=== PATIENT | female | born 1970 | race Caucasian/White ===

== ENCOUNTER 2023-01-21 13:03 | Outpatient (AMB) | payer OTHER, SELFPAY ==
--- NOTE | 2023-01-21 13:32 | HO.NEPHOV ---
HPI HPI Comments History of Present Illness Details juliocesar is a 52-year-old woman with a history of obesity and she underwent gastric bypass surgery in. She lost about 4 lb. Prior to surgery she was on lisinopril for hypertension. Following surgery and weight loss she developed hypotension. For the last couple years she has had significant hypotension requiring midodrine. 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 [facility] Family History (Updated 01/21/23 @ 13:38 by Sima Elliott) Mother No problems noted. Father No problems noted. Vital Signs 01/21/23 13:34 Height 5 ft 6 in Weight 159 lb 4 oz BMI 25.7 BP 106/64 Blood Pressure Location Lt brachial Position Sitting Pulse 80 Pulse Source Pulse Oximeter Pulse Oximetry (%) 98 Oxygen Delivery Method Room Air Physical Exam Vital Signs: Last Vital Signs Pulse 80 01/21/23 13:34 BP 106/64 01/21/23 13:34 Pulse Ox 98 01/21/23 13:34 Oxygen Delivery Method Room Air 01/21/23 13:34 BMI result Body Mass Index 25.7 Const General: comfortable; No acute distress Orientation/consciousness: patient oriented x3 Eyes General: appearance normal, both eyes and all related structures Visual Mckeon: normal visual mckeon by confrontation Neck Neck: Yes supple and Yes no JVD Resp Effort & Inspection: normal respiratory effort and respiratory effort not decreased Auscultation: rhonchi Cardio Palpation: no palpable S3 and no palpable S4 Heart sounds: no rubs GI Inspection: Yes normal to inspection Palpation (GI): Soft to palpation Percussion: Yes normal to percussion Auscultation: normal bowel sounds General: Yes no CVA tenderness Back/Spine/Pelvis Back: no CVA tenderness Skin General skin exam: no petechiae and no purpura Neuro General: patient oriented x3 and no focal motor deficits Extrem General: No clubbing and No edema Results Reviewed Results Reviewed: Labs from [facility] [place] was reviewed serum creatinine normal. Hemoglobin normal as of October 2022 Assessment & Plan Assessment & Plan (1) Hypotension: Code(s): I95.9 - Hypotension, unspecified Plan: Middle-aged woman with a history of obesity and status post gastric bypass surgery was developed hypotension following surgery. She is alert number dysfunction following surgery. Currently she is on midodrine and I will continue the current dose of midodrine. If she develops episodes of low blood pressure when treated to increase the salt intake. Are present renal function stable. We will continue to follow her along with the team. Thank you Orders: Orders Electrolytes 6 Months I10 - Essential (primary) hypertension Blood Urea Nitrogen 6 Months I10 - Essential (primary) hypertension Creatinine 6 Months I10 - Essential (primary) hypertension Calcium 6 Months I10 - Essential (primary) hypertension Coding Level of Care Code Est Pt Level 3 (49477) Diagnoses Hypotension I95.9
[2023-01-21 13:34] VITALS: BP 106/64; PULSE 80; O2SAT 98; BMI 25.7
== END 2023-01-21 13:54 | disposition home or self-care (01) ==
PROVIDERS: Visit Provider Internal Medicine Hypertension Specialist
DX: I95.9 Hypotension, unspecified (principal)
CPT/HCPCS: 99213

== ENCOUNTER → 2023-01-21 13:03 | Outpatient (BNVA) | payer OTHER, SELFPAY | PROVIDERS: Visit Provider Internal Medicine Hypertension Specialist | DX: I95.9 Hypotension, unspecified (principal) | CPT/HCPCS: 99212 ==

== ENCOUNTER 2023-07-22 11:30 | Outpatient (AMB) | payer OTHER, SELFPAY ==
[2023-07-22 11:29] VITALS: BP 148/82; PULSE 62; O2SAT 97; BMI 25.0
--- NOTE | 2023-07-22 11:29 | HO.NEPHOV_ITS ---
Vital Signs 07/22/23 11:29 Height 5 ft 6 in Weight 155 lb BMI 25.0 BP 148/82 H Blood Pressure Location Lt brachial Position Sitting Pulse 62 Pulse Source Pulse Oximeter Pulse Oximetry (%) 97 Oxygen Delivery Method Room Air Intake Visit Reasons: 6M follow up/ LVM [employer] Required: No Accompanied by: Grand Child Allergies house dust Allergy (Unknown, Verified 07/22/23 11:33) Unknown Medication List - Last Reviewed 07/22/23 by Marylou Dye albuterol sulfate mg inhalation aripiprazole 15 mg PO DAILY bupropion HCl XL 300 mg PO DAILY cetirizine 10 mg PO DAILY clonazepam 1 mg PO BID PRN docusate sodium 100 mg PO BID duloxetine 120 mg PO DAILY ipratropium bromide intranasal ketorolac 0.5% drps ophthalmic (eye) levocetirizine 5 mg PO BID lidocaine 5% topical meclizine 25 mg PO TID PRN midodrine 10 mg orally 10 mg tabs; Take 2 tabs in AM, 1 1/2 tab in afternoon and 1 tab at PM. montelukast 10 mg PO DAILY ondansetron 4 mg PO Q6-8H PRN oxcarbazepine 600 mg PO BID pantoprazole 40 mg PO BID polyethylene glycol 3350 17 grams PO DAILY quetiapine 300 mg PO BEDTIME sennosides (Breonna-katharine) 8.6 mg PO DAILY PRN solifenacin 10 mg PO DAILY sumatriptan succinate 50 mg PO PRN vitamin B complex 1 tab PO DAILY HPI Comments Details: Trena is a 53-year-old woman with a history of obesity and she underwent gastric bypass surgery in. She lost about 4 lb. Prior to surgery she was on lisinopril for hypertension. Following surgery and weight loss she developed hypotension. For the last couple years she has had significant hypotension requiring midodrine. 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 [facility] Family History Mother No problems noted. Father No problems noted. Social History Patient Tobacco Use Status: Never used Tobacco Physical Exam Vital Signs: Last Vital Signs Pulse 62 07/22/23 11:29 BP 148/82 H 07/22/23 11:29 Pulse Ox 97 07/22/23 11:29 Oxygen Delivery Method Room Air 07/22/23 11:29 BMI result Body Mass Index 25.0 Const General: comfortable; No acute distress Orientation/consciousness: patient oriented x3 Eyes General: appearance normal, both eyes and all related structures Visual Mckeon: normal visual mckeon by confrontation Neck Neck: Yes supple and Yes no JVD Resp Effort & Inspection: normal respiratory effort and respiratory effort not decreased Auscultation: rhonchi Cardio Palpation: no palpable S3 and no palpable S4 Heart sounds: no rubs GI Inspection: Yes normal to inspection Palpation (GI): Soft to palpation Percussion: Yes normal to percussion Auscultation: normal bowel sounds General: Yes no CVA tenderness Back/Spine/Pelvis Back: no CVA tenderness Skin General skin exam: no petechiae and no purpura Neuro General: patient oriented x3 and no focal motor deficits Extrem General: No clubbing and No edema Results Reviewed Results Reviewed: Renal function normal Creatinine 0.73 Na/K normal Nephrology Results: No Data to Display Assessment & Plan Assessment & Plan (1) Hypotension: Code(s): I95.9 - Hypotension, unspecified Category: Medical Plan: Plan Middle-aged woman with a history of obesity and status post gastric bypass surgery was developed hypotension following surgery. She has autonomic dysfunction following gastric bypass surgery. Currently she is on midodrine and I will continue the current dose of midodrine. She is on 20 mg in the morning 50 mg in afternoon and 10 mg in the evening. If she develops episodes of low blood pressure when treated to increase the salt intake. Are present renal function stable. We will continue to follow her along with the team. Medications: Changed From midodrine 10 mg PO TID 120 tabs 2RF To midodrine 10 mg orally 10 mg tabs; Take 2 tabs in AM, 1 1/2 tab in afternoon and 1 tab at PM. 120 tabs 2RF Coding Level of Care Code Est Pt Level 4 (35950) Diagnoses Hypotension I95.9
== END 2023-07-22 11:52 | disposition home or self-care (01) ==
PROVIDERS: PCP Nurse Practitioner Family; Visit Provider Internal Medicine Hypertension Specialist
DX: I95.9 Hypotension, unspecified (principal)
CPT/HCPCS: 99214

== ENCOUNTER → 2023-07-22 11:30 | Outpatient (BNVA) | payer OTHER, SELFPAY | PROVIDERS: PCP Nurse Practitioner Family; Visit Provider Internal Medicine Hypertension Specialist | DX: I95.9 Hypotension, unspecified (principal); R53.83 Other fatigue; Z98.84 Bariatric surgery status | CPT/HCPCS: 99212 ==